=== PATIENT | female | born 1995 | race African-American/Black ===

== ENCOUNTER 2018-02-23 16:31 | Emergency (ER) | payer MEDICAID ==
[~2018-02-23] VITALS: Ht 149.9 cm; Wt 72.6 kg
[2018-02-23 16:38] VITALS: BP 148/95
[2018-02-23] MEDS ORDERED: KETOROLAC TROMETH 60MG/2ML VIAL IM ONE (20:30)
== END 2018-02-23 20:47 | disposition home or self-care (01) ==
LOC: ER 16:31
DX: M54.9 Dorsalgia, unspecified (principal); M79.1 Myalgia
CPT/HCPCS: J1885